=== PATIENT | male | born 1980 | race African-American/Black ===

== ENCOUNTER 2017-09-10 18:39 | Emergency (ER) | payer SELFPAY ==
--- NOTE | 2017-09-10 22:17 | RAD ---
RIGHT ANKLE 3 VIEWS: Date: 09/10/17 Soft tissue swelling is present, particularly medially. There is a rounded piece of bone seen just me dial to the talus. I do not know if there has been any recent trauma, though it seems perhaps a littl e more likely that it could be from old trauma. The clinical history should be considered. There may need to be a follow-up MRI or CT to better see the area. The articular surfaces are smooth. IMPRESSION: Medial swelling. Medial piece of bone that may not be acute, but this should be correlated with the anaya robles clinical history if there is any of trauma. Follow-up may be needed to further investigate jose Rendon. POS: HOME
== END 2017-09-10 19:55 | disposition home or self-care (01) ==
LOC: BURERS 18:39
DX: S93.401A Sprain of unspecified ligament of right ankle, initial encounter (principal); F17.210 Nicotine dependence, cigarettes, uncomplicated; X50.9XXA Other and unspecified overexertion or strenuous movements or postures, initial encounter